=== PATIENT | male | born 1965 | race Asian ===

== ENCOUNTER 2020-04-22 10:30 | Outpatient (CLI) | payer BC ==
[2020-04-22 11:41] LABS: BASOPHILS % (AUTO) 0.7 % (0.0-2.0); EOSINOPHILS # (AUTO) 0.1 K/uL (0.0-0.7); EOSINOPHILS % (AUTO) 2.8 % (0.0-7.0); HEMATOCRIT 48.6 % (36.7-47.1); HEMOGLOBIN 16.1 g/dL (12.5-16.3); LYMPHOCYTES % (AUTO) 38.8 % (20.5-51.5); MEAN CORPUSCULAR HEMOGLOBIN 31.4 uug (23.8-33.4); MEAN CORPUSCULAR HGB CONC 33 g/dL (32.5-36.3); MEAN CORPUSCULAR VOLUME 94.9 fL (73.0-96.2); MONOCYTES # (AUTO) 0.5 K/uL (2.0-10.0); MONOCYTES % (AUTO) 9.4 % (0.0-11.0); NEUTROPHILS # (AUTO) 2.4 K/uL (1.8-8.9); NEUTROPHILS % (AUTO) 48.3 % (38.5-71.5); PLATELET COUNT (AUTO) 277 K/uL (152-348); RED BLOOD CELL COUNT(AUTO) 5.12 MIL/uL (4.06-5.63); WHITE BLOOD COUNT (AUTO) 5.1 K/uL (3.6-10.2)
[2020-04-22 11:58] LABS: THYROID STIMULATING HORMONE 1.019 mIU/mL (0.358-3.740)
[2020-04-22 12:38] LABS: BILIRUBIN,TOTAL 0.6 mg/dL (0.2-1.0); CREATININE 1.6 mg/dL (0.6-1.3); TOTAL PROTEIN, SERUM 8.5 g/dL (6.4-8.2)
[2020-04-22 14:32] LABS: *BILIRUBIN,URIN NEGATIVE (NEGATIVE); *BLOOD, URINE NEGATIVE (NEGATIVE); *CLARITY,URINE CLEAR (CLEAR); *COLOR,URINE YELLOW (YELLOW); *KETONES,URINE NEGATIVE (NEGATIVE); *UROBILINOGEN,URINE 0.2 E.U./dl (NORMAL); LEUKOCYTE ESTERASE ,URINE NEGATIVE (NEGATIVE); NITRITE, URINE NEGATIVE (NEGATIVE); UGLUCOSE NEGATIVE (NEGATIVE)
== END 2020-04-22 23:59 | disposition home or self-care (01) ==
LOC: LAB 10:30
PROVIDERS: ATTEND Family Medicine
DX: I12.9 Hypertensive chronic kidney disease with stage 1 through stage 4 chronic kidney disease, or unspecified chronic kidney disease (principal); E78.2 Mixed hyperlipidemia; N18.9 Chronic kidney disease, unspecified; Z79.899 Other long term (current) drug therapy
CPT/HCPCS: 70030-TC; 82306; 84443; 85025

== ENCOUNTER 2020-05-29 09:17 | Outpatient (CLI) | payer BC ==
[2020-05-29 10:58] LABS: BILIRUBIN,TOTAL 0.7 mg/dL (0.2-1.0); CREATININE 1.5 mg/dL (0.6-1.3); POTASSIUM 4.6 mmol/L (3.5-5.1)
[2020-05-30 13:06] LABS: A/G RATIO 1.2 (0.7-1.7); ALBUMIN 3.6 g/dL (2.9-4.4); ALPHA-1-GLOBULIN 0.2 g/dL (0.0-0.4); ALPHA-2-GLOBULIN 0.7 g/dL (0.4-1.0); BETA GLOBULIN 1.2 g/dL (0.7-1.3); GLOBULIN, TOTAL 3.1 g/dL (2.2-3.9); M-SPIKE Not Observed g/dL (Not Observed)
== END 2020-05-29 23:59 | disposition home or self-care (01) ==
LOC: LAB 09:17
PROVIDERS: ATTEND Family Medicine
DX: Z00.01 Encounter for general adult medical examination with abnormal findings (principal)
CPT/HCPCS: 84155; 84165

== ENCOUNTER 2020-08-18 06:28 | Outpatient (CLI) | payer BC | END 2020-08-18 23:59 | disposition home or self-care (01) | LOC: LAB 06:28 | PROVIDERS: ATTEND Internal Medicine Gastroenterology | DX: Z01.812 Encounter for preprocedural laboratory examination (principal); Z20.822 Contact with and (suspected) exposure to COVID-19; R12 Heartburn ==

== ENCOUNTER 2020-08-21 11:41 | Day surgery (SDC) | payer BC ==
[2020-08-21] MEDS ORDERED: PROPOFOL 200 MG/20 ML BOTTLE IV ONE (11:42)
[2020-08-21 12:53] LABS: BASOPHILS % (AUTO) 0.7 % (0.0-2.0); EOSINOPHILS # (AUTO) 0.2 K/uL (0.0-0.7); EOSINOPHILS % (AUTO) 3.2 % (0.0-7.0); HEMATOCRIT 50.7 % (36.7-47.1); HEMOGLOBIN 17.6 g/dL (12.5-16.3); LYMPHOCYTES # (AUTO) 2.2 K/uL (20.0-40.0); LYMPHOCYTES % (AUTO) 29.9 % (20.5-51.5); MEAN CORPUSCULAR HEMOGLOBIN 32.8 uug (23.8-33.4); MEAN CORPUSCULAR HGB CONC 35 g/dL (32.5-36.3); MEAN CORPUSCULAR VOLUME 94.7 fL (73.0-96.2); MONOCYTES # (AUTO) 0.7 K/uL (2.0-10.0); MONOCYTES % (AUTO) 10.2 % (0.0-11.0); NEUTROPHILS # (AUTO) 4.1 K/uL (1.8-8.9); PLATELET COUNT (AUTO) 221 K/uL (152-348); RED BLOOD CELL COUNT(AUTO) 5.36 MIL/uL (4.06-5.63); WHITE BLOOD COUNT (AUTO) 7.3 K/uL (3.6-10.2)
[2020-08-21 12:58] LABS: CREATININE 1.8 mg/dL (0.6-1.3); POTASSIUM 4.5 mmol/L (3.5-5.1)
[2020-08-21 12:59] LABS: *BILIRUBIN,URIN 1+ (NEGATIVE); *BLOOD, URINE NEGATIVE (NEGATIVE); *CLARITY,URINE CLEAR (CLEAR); *COLOR,URINE YELLOW (YELLOW); *KETONES,URINE NEGATIVE (NEGATIVE); *UROBILINOGEN,URINE 0.2 E.U./dl (NORMAL); LEUKOCYTE ESTERASE ,URINE NEGATIVE (NEGATIVE); NITRITE, URINE NEGATIVE (NEGATIVE); PH,URINE 5.5 (5.0-8.0); UGLUCOSE NEGATIVE (NEGATIVE)
[2020-08-21 14:49] LABS: BACTERIA,URINE NONE SEEN /HPF (NONE SEEN); RBC,URINE 0-3 /HPF (0-3); WBC,URINE 0-3 /HPF (0-3)
[2020-08-21 14:50] LABS: SQUAMOUS EPITHELIAL CELL,UR FEW /HPF (NONE SEEN)
== END 2020-08-21 16:05 | disposition home or self-care (01) ==
LOC: DS 11:41
PROVIDERS: ATTEND Internal Medicine Gastroenterology
DX: Z12.11 Encounter for screening for malignant neoplasm of colon (principal); R10.13 Epigastric pain; K64.8 Other hemorrhoids; K29.50 Unspecified chronic gastritis without bleeding; K21.00 Gastro-esophageal reflux disease with esophagitis, without bleeding; K31.89 Other diseases of stomach and duodenum; K63.89 Other specified diseases of intestine; I10 Essential (primary) hypertension; E78.00 Pure hypercholesterolemia, unspecified; Z79.899 Other long term (current) drug therapy; Z98.890 Other specified postprocedural states; Z72.89 Other problems related to lifestyle
CPT/HCPCS: 36415; 71045; 85025; 85610; 85730; 93005; A4217; J3490

== ENCOUNTER 2023-09-17 08:44 | Emergency (ER) | payer BC, OTHER ==
[~2023-09-17] VITALS: Ht 160 cm; Wt 74.4 kg
[2023-09-17] MEDS ORDERED: ACETAMINOPHEN ES 500 MG TABLET ONE (09:01)
[2023-09-17] MEDS: ACETAMINOPHEN ES 500 MG TABLET PO ONE (09:04)
[2023-09-17 09:09] LABS: BASOPHILS # (AUTO) 0.1 K/UL (0.0-0.2); EOSINOPHILS # (AUTO) 0.2 K/uL (0.0-0.7); EOSINOPHILS % (AUTO) 1.8 % (0.0-7.0); HEMATOCRIT 46.9 % (36.7-47.1); HEMOGLOBIN 15.9 g/dL (12.5-16.3); LYMPHOCYTES # (AUTO) 1.9 K/uL (0.8-4.8); LYMPHOCYTES % (AUTO) 17.8 % (20.5-51.5); MEAN CORPUSCULAR HGB CONC 34 g/dL (32.5-36.3); MONOCYTES # (AUTO) 1.1 K/uL (0.1-1.30); MONOCYTES % (AUTO) 10.4 % (0.0-11.0); NEUTROPHILS # (AUTO) 7.4 K/uL (1.8-8.9); PLATELET COUNT (AUTO) 258 K/uL (152-348); RED BLOOD CELL COUNT(AUTO) 4.99 MIL/uL (4.06-5.63); RED CELL DISTRIBUTION WIDTH 14.3 % (12.1-16.2); WHITE BLOOD COUNT (AUTO) 10.7 K/uL (3.6-10.2)
[2023-09-17 09:18] LABS: DIFFERENTIAL COMMENT 1
[2023-09-17 09:58] LABS: CALCIUM 9.3 mg/dL (8.5-10.1); CREATININE 1.5 mg/dL (0.6-1.3); POTASSIUM 4.2 mmol/L (3.5-5.1)
[2023-09-17 10:03] LABS: ALBUMIN 3.4 g/dL (3.4-5.0)
[2023-09-17] MEDS ORDERED: AMOX-430 PO (10:29)
[2023-09-17] MEDS: AMOXICILLIN-CLAVUL 875-125MG TABLET PO ONE (10:36)
[2023-09-17] MEDS ORDERED: AMOXICILLIN-CLAVUL 875-125MG TABLET ONE (10:36)
[2023-09-17 10:41] VITALS: BP 130/86; TEMP 98.2; O2SAT 96
== END 2023-09-17 10:44 | disposition home or self-care (01) ==
LOC: ER 08:44
DX: L08.9 Local infection of the skin and subcutaneous tissue, unspecified (principal)
CPT/HCPCS: 36415; 85025; 86140; A4606; A4663; A9150

== ENCOUNTER 2023-12-03 08:02 | Day surgery (SDC) | payer BC, OTHER ==
[~2023-12-03 08:02] MED LIST: AMOX-430 PO; CEFAZOLIN 2 G in IV DEXTROSE 5% 100 ML IV ONE
[2023-12-03] MEDS ORDERED: NEOMY/BACITRAC/POLYMI OINT 28.35 GM TUBE ONE (09:57)
[2023-12-03] MEDS ORDERED: LIDOCAINE HCL 1% 20 ML VIAL ONE (09:57)
[2023-12-03] MEDS ORDERED: BUPIVACAINE/EPI PF 0.25% 10 ML VIAL IJ ONE (09:57)
[2023-12-03] MEDS ORDERED: ACETAMINOPHEN 325 MG TABLET ONE (12:46)
[2023-12-03] MEDS ORDERED: GABAPENTIN 100 MG CAPSULE PO SCH (13:00)
[2023-12-03] MEDS ORDERED: CELECOXIB 200 MG CAPSULE PO SCH (13:00)
[2023-12-03] MEDS ORDERED: ACETAMINOPHEN 325 MG TABLET PO SCH (13:00)
== END 2023-12-03 13:15 | disposition home or self-care (01) ==
LOC: DS 08:02
PROVIDERS: ATTEND Surgery
DX: K61.0 Anal abscess (principal); E78.5 Hyperlipidemia, unspecified; E11.9 Type 2 diabetes mellitus without complications; K21.9 Gastro-esophageal reflux disease without esophagitis; Z79.899 Other long term (current) drug therapy; Z98.890 Other specified postprocedural states
CPT/HCPCS: 46275; J0690; J3490; J7040; A4649; A4663